=== PATIENT | male | born 1965 | race Caucasian/White ===

== ENCOUNTER → 2017-06-07 | Outpatient (CLI) | payer MEDICAID ==
--- NOTE | 2017-06-07 15:07 | CT ---
EXAMINATION TYPE: CT angio chest DATE OF EXAM: 06/07/2017 COMPARISON: CT abdomen pelvis dated 05/07/2011 HISTORY: Shortness of breath; PE CT DLP: 500 mGycm. Automated Exposure Control for Dose Reduction was Utilized. CONTRAST: CTA scan of the thorax is performed with IV Contrast, patient injected with 100 ml mL of Omnipaque 35 0, pulmonary embolism protocol. MIP Images are created on CT scanner and reviewed. FINDINGS: LUNGS: The lungs are grossly clear, there is no concerning parenchymal mass or nodule identified. T here is no pleural effusion or pneumothorax seen. The tracheobronchial tree is patent. MEDIASTINUM: There is satisfactory enhancement of the pulmonary artery and its branches, there is no CT evidence for pulmonary embolism. There are no greater than 1 cm hilar or mediastinal lymph nodes. No cardiomegaly or pericardial effusion is seen. Incidental note is made of a normal variant branc h pattern with the left vertebral artery branching directly from the aortic arch. OTHER: Incidentally noted bilateral slightly asymmetric, right greater than left, retroareolar gyneco mastia is seen. Gallbladder is surgically absent. Biliary stent is noted, partially visualized. Nonob structing right upper pole renal calculi are seen at least 3 in number measuring up to 6 mm. Exophyti c 8mm right upper pole renal lesion is too small to accurately characterize. Small splenule seen sage cent to the [place] spleen. IMPRESSION: 1. No evidence of pulmonary embolus. 2. No focal consolidation, pleural effusion or pneumothorax. 3. Nonobstructing right upper pole renal calculi and right renal lesion that is too small to accurate ly characterize. 4. Partial visualization of a biliary stent as seen on the prior exam.
== END | disposition home or self-care (01) ==
LOC: RADCTMAIN 14:10
PROVIDERS: ATTEND Internal Medicine Hematology & Oncology
DX: R06.02 Shortness of breath (principal)
CPT/HCPCS: 71275; Q9967

== ENCOUNTER → 2019-06-05 | Day surgery (SDC) | payer MEDICAID ==
[2019-06-03 13:07] VITALS: BMI 26.2
[~2019-06-05] MED LIST: LACTATED RINGERS 1,000 ML IV SCH; LIDOCAINE 1% 20 ML VIAL (10MG/ML) FOR IV START INTRADERMA PRN; LIDOCAINE 1% INJ 10MG/ML (20 ML MDV) ONE; PROPOFOL 10 MG/ML 20 ML VIAL IV ONE
[2019-06-05 11:18] VITALS: RESP 16; TEMP 98.2
--- NOTE | 2019-06-05 12:28 | P.PCN ---
Date of Procedure: 06/05/19 Procedure(s) Performed: BRIEF HISTORY: Patient is a 53-year-old pleasant white male scheduled for an elective colonoscopy as a part of screening for colorectal neoplasia. PROCEDURE PERFORMED: Colonoscopy With snare polypectomy. PREOPERATIVE DIAGNOSIS: Screening for colon cancer. IV sedation per Anesthesia. PROCEDURE: After informed consent was obtained, the patient, was brought into the endoscopy unit. IV sedation was administered by Anesthesia under continuous monitoring. Digital rectal examination was normal. Initially the Olympus CF-160 flexible video colonoscope was then inserted in the rectum, gradually advanced into the cecum without any difficulty. Careful examination was performed as the scope was gradually being withdrawn. Ileocecal valve and the appendiceal orifice were visualized and appeared normal. Prep was excellent. Mucosa of the cecum, ascending colon, transverse colon, descending colon,appeared normal. In the sigmoid colon there were 3 polyps measuring between 5 mm and 6 m in size all of which were removed by snare polypectomy. In the mid rectum there was a 1.5 cm polyp removed by snare polypectomy. Rest of the sigmoid colon, and rectum appeared normal. Retroflexion was performed in the rectum and no lesions were seen. The patient tolerated the procedure well. IMPRESSION: 5 mm, 6 mm X2, sigmoid colon Polyps status post polypectomy 1.5 cm broad-based mid rectal polyp status post polypectomy RECOMMENDATIONS: Findings of this examination were discussed with the patient as well as his family. He was advised to follow with the biopsy results. If the biopsy shows an adenoma he can have a repeat colonoscopy in 3 years.
[2019-06-05 12:47] VITALS: BP 105/71; PULSE 67
== END ==
LOC: ORWHC2ENDO 10:34
PROVIDERS: ATTEND Internal Medicine Gastroenterology
DX: Z12.11 Encounter for screening for malignant neoplasm of colon (principal); D12.5 Benign neoplasm of sigmoid colon; D12.8 Benign neoplasm of rectum; I10 Essential (primary) hypertension; Z88.2 Allergy status to sulfonamides; Z88.5 Allergy status to narcotic agent; Z88.8 Allergy status to other drugs, medicaments and biological substances; Z86.718 Personal history of other venous thrombosis and embolism; Z79.899 Other long term (current) drug therapy
CPT/HCPCS: 88305; 45385; J2001; J2704

== ENCOUNTER → 2020-05-30 | Outpatient (CLI) | payer MEDICAID ==
[2020-05-30 19:51] LABS: Albumin 3.8 g/dL (3.80-4.90); Albumin/Globulin Ratio 1.81 (1.60-3.17); Bilirubin, Conjugated 0.5 mg/dL (0.20-0.40); Bilirubin,Unconjugated 0.6 mg/dL; Globulin 2.1 g/dL (1.6-3.3); Total Bilirubin 1.1 mg/dL (0.3-1.2); Total Protein 5.9 g/dL (6.2-8.2)
[2020-05-30 22:38] LABS: INR 0.95 (0.90-1.11); Prothrombin Time 10.3 sec (9.9-11.9)
== END | disposition home or self-care (01) ==
LOC: LABWHC1 11:01
PROVIDERS: ATTEND Internal Medicine Critical Care Medicine
DX: D12.6 Benign neoplasm of colon, unspecified (principal)
CPT/HCPCS: 36415; 80076; 82140; 85610

== ENCOUNTER → 2021-01-21 | Outpatient (CLI) | payer MEDICAID ==
--- NOTE | 2021-01-23 09:20 | MR ---
EXAMINATION TYPE: MR abdomen wo/w con DATE OF EXAM: 01/21/2021 COMPARISON: None at this institution. HISTORY: Portal hypertension. History of shunt and liver. CONTRAST: Standard multiplanar, multisequence MRI departmental protocol images were obtained without contrast a nd with 7.5 mL intravenous Gadavist gadolinium contrast. Imaging performed of the abdomen focusing o n the liver. FINDINGS: Liver: Liver is overall normal in size. Gallbladder is surgically absent. Tiny 3 mm thin-walled cyst inferior right hepatic lobe coronal image 11 incidentally noted. No concerning solid masses identifie d. No intrahepatic or extra hepatic biliary dilatation seen. No surrounding ascites. Postcontrast images show patent main portal vein measuring up to 15 mm, upper limits of normal. There is satisfactory central branching pulmonary vessels. More delayed images shows patent hepatic veins draining into IVC. Early images show satisfactory enhancement in the hepatic artery at level of nati hepatis. Other: Mild posterior bibasilar linear scarring and/or atelectasis. Spleen is normal in size without surrounding ascites. Incidental central splenule axial image 77 series 1001. No adrenal masses are ev ident. Pancreas is felt within normal limits. There are scattered small thin-walled cysts throughout the left kidney. No hydronephrosis seen bilaterally. No suspicious bowel dilatation. No intra-abdominal ascites. Visualized osseous structures are intact. No AAA. IMPRESSION: No biliary dilatation. Patent main pulmonary vein measures upper limits of normal in size . No concerning intrahepatic mass. No surrounding ascites.
== END | disposition home or self-care (01) ==
LOC: RADMRIMAIN 09:56
PROVIDERS: ATTEND Internal Medicine Hematology & Oncology
DX: K76.6 Portal hypertension (principal)
CPT/HCPCS: 74183; A9585